=== PATIENT | female | born 1980 | race Two or more races ===

== ENCOUNTER 2018-04-20 09:15 | Inpatient (IN) | payer OTHER ==
[~2018-04-20] VITALS: Ht 152.4 cm; Wt 2.7 kg
[2018-04-20] MEDS ORDERED: PRENATABS FA T1 EACH PO (10:49)
[2018-04-29] MEDS ORDERED: CODE1TAB37 PO ×2 (14:00)
== END 2018-04-29 14:15 | disposition home or self-care (01) | DRG 785 ==
LOC: LDR 04-25 17:54 → SURG-SUITE 04-25 17:54 → OB/GYN 05-03 09:15
PROVIDERS: ADMIT Obstetrics & Gynecology
PROC: 10D00Z1 Extraction of Products of Conception, Low, Open Approach (ICD-10-PCS; principal; 2018-04-25)
PROC: 0UL70ZZ Occlusion of Bilateral Fallopian Tubes, Open Approach (ICD-10-PCS; 2018-04-25)
PROC: 4A1HXCZ Monitoring of Products of Conception, Cardiac Rate, External Approach (ICD-10-PCS; 2018-04-25)
DX: O34.211 Maternal care for low transverse scar from previous cesarean delivery (principal); O75.82 Onset (spontaneous) of labor after 37 completed weeks of gestation but before 39 completed weeks gestation, with delivery by (planned) cesarean section; Z3A.38 38 weeks gestation of pregnancy; Z37.0 Single live birth; Z30.2 Encounter for sterilization

== ENCOUNTER 2018-04-25 16:30 | Outpatient (CLI) | payer OTHER ==
[~2018-04-25 16:30] MED LIST: PRENATABS FA T1 EACH PO
== END 2018-04-25 19:23 | disposition still patient (30) ==
LOC: OBS/DEL 16:30
DX: O47.1 False labor at or after 37 completed weeks of gestation (principal); Z34.83 Encounter for supervision of other normal pregnancy, third trimester